=== PATIENT | male | born 1970 | race Caucasian/White ===

== ENCOUNTER 2018-12-23 20:32 | Emergency (ER) | payer OTHER ==
[~2018-12-23] VITALS: Ht 165.1 cm; Wt 74.8 kg
[~2018-12-23 20:32] MED LIST: OSEL75CA PO
[2018-12-23] MEDS ORDERED: SYNTHROID75 MCG (20:39)
== END 2018-12-23 22:03 | disposition home or self-care (01) ==
LOC: ER 20:32
DX: L53.8 Other specified erythematous conditions (principal); T20.1 Burn of first degree of head, face, and neck; Y63.5 Inappropriate temperature in local application and packing; Y81.1 Therapeutic (nonsurgical) and rehabilitative general- and plastic-surgery devices associated with adverse incidents

== ENCOUNTER 2021-07-09 18:00 | Emergency (ER) | payer OTHER ==
[~2021-07-09] VITALS: Ht 165.1 cm; Wt 77.1 kg
[~2021-07-09 18:00] MED LIST changes: +SYNTHROID75 MCG
[2021-07-09] MEDS ORDERED: SYNTHROID100 MCG (18:20)
[2021-07-09] MEDS ORDERED: AMOX-CLAV 875-1 EACH PO (18:44)
== END 2021-07-09 18:55 | disposition home or self-care (01) ==
LOC: ER 18:00
DX: H65.91 Unspecified nonsuppurative otitis media, right ear (principal)

== ENCOUNTER 2021-08-12 07:23 | Emergency (ER) | payer OTHER ==
[~2021-08-12] VITALS: Ht 167.6 cm; Wt 74.8 kg
[~2021-08-12 07:23] MED LIST changes: +AMOX-CLAV 875-1 EACH PO; +SYNTHROID100 MCG
[2021-08-12] MEDS ORDERED: METFORMIN HCL500 M4 (07:34)
[2021-08-12] MEDS ORDERED: CRESTOR20 MG (07:35)
== END 2021-08-12 09:38 | disposition home or self-care (01) ==
LOC: ER 07:23
DX: H92.01 Otalgia, right ear (principal); E11.9 Type 2 diabetes mellitus without complications

== ENCOUNTER 2021-12-31 06:06 | Emergency (ER) | payer OTHER ==
[~2021-12-31] VITALS: Ht 165.1 cm; Wt 75.7 kg
[~2021-12-31 06:06] MED LIST changes: +CRESTOR20 MG; +METFORMIN HCL500 M4
== END 2021-12-31 10:08 | disposition home or self-care (01) ==
LOC: ER 06:06
DX: R10.31 Right lower quadrant pain (principal)

== ENCOUNTER 2022-02-01 09:23 | Day surgery (SDC) | payer OTHER ==
[~2022-02-01] VITALS: Ht 165.1 cm; Wt 77.1 kg
[2022-02-01] MEDS ORDERED: KETO10TA2 PO (12:56)
[2022-02-01] MEDS ORDERED: ULTRAM50 MG PO (12:56)
[2022-02-01] MEDS ORDERED: MIRALAX17 GM PO (12:56)
[2022-02-01] MEDS ORDERED: TYLENOL ARTHRI650 MG PO (12:56)
== END 2022-02-01 16:35 | disposition home or self-care (01) ==
LOC: CIR.AMB 09:23
PROVIDERS: ATTEND Surgery
DX: K40.20 Bilateral inguinal hernia, without obstruction or gangrene, not specified as recurrent (principal); E03.9 Hypothyroidism, unspecified; E11.9 Type 2 diabetes mellitus without complications; E78.5 Hyperlipidemia, unspecified; Z79.84 Long term (current) use of oral hypoglycemic drugs; Z20.822 Contact with and (suspected) exposure to COVID-19; K42.9 Umbilical hernia without obstruction or gangrene; D17.6 Benign lipomatous neoplasm of spermatic cord

== ENCOUNTER 2023-05-23 14:46 | Outpatient (CLI) | payer OTHER ==
[~2023-05-23 14:46] MED LIST changes: +KETO10TA2 PO; +MIRALAX17 GM PO; +TYLENOL ARTHRI650 MG PO; +ULTRAM50 MG PO
== END 2023-05-23 14:56 | disposition home or self-care (01) ==
LOC: RAD 14:46
PROVIDERS: ATTEND Internal Medicine
DX: Z01.818 Encounter for other preprocedural examination (principal)

== ENCOUNTER 2023-12-23 13:07 | Emergency (ER) | payer OTHER ==
[~2023-12-23] VITALS: Ht 165.1 cm; Wt 78.0 kg
[2023-12-23] MEDS ORDERED: GUAIFEN/DEXTROMETHORPHAN/PE 10 ML BLIST.PACK PO ONE (15:00)
[2023-12-23] MEDS ORDERED: ACETAMINOPHEN 500 MG GEL..CAP PO ONE (15:15)
[2023-12-23 15:25] LABS: HEMATOCRIT 43.2 % (39.0-48.0); HEMOGLOBIN 14.8 g/dL (13-16.00); MEAN CORPUSCULAR HEMOGLOBIN 29.5 pg (27.00-32.0); MEAN CORPUSCULAR HGB CONC 34.3 g/dl (32.0-36.0); PLATELET COUNT 190 K/uL (150-450); RED BLOOD COUNT 5.02 M/uL (4.00-6.00)
[2023-12-23 15:28] LABS: PH,URINE 6.5 (5.0-8.0); URINE APPEARANCE Clear; URINE BILIRRUBIN Negative (NEGATIVE); URINE BLOOD Negative; URINE COLOR Dark Yellow; URINE GLUCOSE Negative (NEGATIVE); URINE LEUKOCYTE Negative; URINE NITRATE Negative; URINE PROTEIN Trace (NEGATIVE)
[2023-12-23 15:32] LABS: URINE BACTERIA 429.3 uL (0.0-1933); URINE EPITHELIAL CELLS 2.7 uL (0.0-38.8); URINE RBC 9.6 uL (0.0-20.8); URINE WBC 4.6 uL (0.0-23.2)
[2023-12-23 15:51] LABS: CALCIUM 10.3 mg/dL (8.5-10.1); CREATININE SERUM 0.9 mg/dL (0.70-1.30); GFR 88.27; POTASSIUM 4.68 mEq/L (3.5-5.1)
== END 2023-12-23 17:24 | disposition home or self-care (01) ==
LOC: ER 13:08
PROVIDERS: Emergency Medicine
DX: U07.1 COVID-19 (principal); B34.9 Viral infection, unspecified; E03.8 Other specified hypothyroidism

== ENCOUNTER 2024-01-14 11:13 | Emergency (ER) | payer OTHER ==
[~2024-01-14] VITALS: Ht 165.1 cm; Wt 75.3 kg
[2024-01-14] MEDS ORDERED: KETOROLAC TROMETHAMINE 60 MG VIAL IM ONE ×2 (14:45→14:58)
[2024-01-14] MEDS ORDERED: ORPHENADRINE CITRATE 30 MG/ML AMPUL IM ONE (14:45)
[2024-01-14] MEDS ORDERED: ORPHENADRINE CITRATE 30 MG/ML AMPUL ONE (14:58)
[2024-01-14] MEDS ORDERED: NORFLEX100MG PO (15:13)
[2024-01-14] MEDS ORDERED: DICLOFENAC SODI50 MG PO (15:13)
== END 2024-01-14 16:03 | disposition home or self-care (01) ==
LOC: ER 11:13
DX: M54.50 Low back pain, unspecified (principal); M25.562 Pain in left knee; E03.8 Other specified hypothyroidism; E78.49 Other hyperlipidemia; E11.9 Type 2 diabetes mellitus without complications; Z79.84 Long term (current) use of oral hypoglycemic drugs; M51.36 Other intervertebral disc degeneration, lumbar region

== ENCOUNTER 2024-02-21 10:45 | Outpatient (CLI) | payer OTHER ==
[~2024-02-21 10:45] MED LIST changes: +DICLOFENAC SODI50 MG PO; +NORFLEX100MG PO
== END 2024-02-21 10:56 | disposition home or self-care (01) ==
LOC: MRI 10:45
PROVIDERS: ATTEND Physical Medicine & Rehabilitation
DX: M25.562 Pain in left knee (principal)
CPT/HCPCS: 73721

== ENCOUNTER 2024-05-18 15:34 | Outpatient (CLI) | payer OTHER | END 2024-05-18 15:40 | disposition home or self-care (01) | LOC: RAD 15:34 | PROVIDERS: ATTEND Orthopaedic Surgery Sports Medicine | DX: M22.42 Chondromalacia patellae, left knee (principal); M22.41 Chondromalacia patellae, right knee ==